=== PATIENT | female | born 1945 | race Caucasian/White ===

== ENCOUNTER 2017-03-23 09:53 | Outpatient (CLI) | payer OTHER | END 2017-03-23 19:47 | disposition home or self-care (01) | LOC: SMA 09:53 | PROVIDERS: ATTEND Family Medicine | DX: Z12.31 Encounter for screening mammogram for malignant neoplasm of breast (principal) | CPT/HCPCS: G0202 ==

== ENCOUNTER 2020-04-29 10:34 | Outpatient (CLI) | payer OTHER | END 2020-04-29 20:19 | disposition home or self-care (01) | LOC: SMA 10:34 | PROVIDERS: ATTEND Family Medicine | DX: Z12.31 Encounter for screening mammogram for malignant neoplasm of breast (principal); I10 Essential (primary) hypertension; I70.0 Atherosclerosis of aorta; Z86.19 Personal history of other infectious and parasitic diseases | CPT/HCPCS: 71046-TC; 77067 ==